=== PATIENT | female | born 1945 | race Caucasian/White ===

== ENCOUNTER → 2018-06-25 | Outpatient (CLI) | payer OTHER ==
[~2018-06-25] MED LIST: ATOR10TA9 PO; CLIN300C8 PO; GUAI12003 PO; LEVO125T PO; LISI-167 PO; LORA-702 PO; MONT10TA9 PO
== END | disposition home or self-care (01) ==
LOC: CFH 07:50
PROVIDERS: ATTEND Family Medicine
DX: Z12.31 Encounter for screening mammogram for malignant neoplasm of breast (principal)
CPT/HCPCS: 77067